=== PATIENT | female | born 1990 ===

== ENCOUNTER → 2021-03-11 | Outpatient (CLI) | payer OTHER | END | disposition home or self-care (01) | LOC: RAD 12:29 | PROVIDERS: ATTEND Family Medicine | DX: M54.2 Cervicalgia (principal); M54.6 Pain in thoracic spine; G89.4 Chronic pain syndrome ==

== ENCOUNTER 2022-01-03 08:39 | Outpatient (CLI) | payer OTHER | END 2022-01-03 08:52 | disposition home or self-care (01) | LOC: SONOGRAMA 08:39 | PROVIDERS: ATTEND Obstetrics & Gynecology Obstetrics | DX: N64.4 Mastodynia (principal); R10.2 Pelvic and perineal pain ==

== ENCOUNTER 2023-04-05 09:12 | Outpatient (CLI) | payer OTHER | END 2023-04-05 09:21 | disposition home or self-care (01) | LOC: SONOGRAMA 09:12 | PROVIDERS: ATTEND Obstetrics & Gynecology Obstetrics | DX: R10.2 Pelvic and perineal pain (principal) ==

== ENCOUNTER 2024-05-26 08:29 | Outpatient (CLI) | payer OTHER | END 2024-05-26 08:35 | disposition home or self-care (01) | LOC: SONOGRAMA 08:29 | PROVIDERS: ATTEND Obstetrics & Gynecology Obstetrics | DX: R10.2 Pelvic and perineal pain (principal) ==

== ENCOUNTER 2025-05-05 08:42 | Outpatient (CLI) | payer OTHER | END 2025-05-05 08:48 | disposition home or self-care (01) | LOC: SONOGRAMA 08:42 | PROVIDERS: ATTEND Obstetrics & Gynecology Obstetrics | DX: N64.4 Mastodynia (principal); R10.2 Pelvic and perineal pain ==

== ENCOUNTER 2025-06-01 09:11 | Outpatient (CLI) | payer OTHER | END 2025-06-01 09:15 | disposition home or self-care (01) | LOC: MAMO-SONO 09:11 | PROVIDERS: ATTEND Obstetrics & Gynecology Obstetrics | DX: N64.4 Mastodynia (principal) ==